=== PATIENT | male | born 1950 | race Caucasian/White ===

== ENCOUNTER → 2024-07-02 | Outpatient (CLI) | payer MEDICARE ==
--- NOTE | 2024-07-03 16:55 | XR ---
EXAMINATION TYPE: XR ribs LT w pa chest xray DATE OF EXAM: 07/02/2024 4:26 PM COMPARISON: None. CLINICAL INDICATION: Male, 74 years old with history of W19.XXXA,S22.32XB LEFT RIB PAIN, TECHNIQUE: 2 views view(s) obtained. Frontal chest is obtained FINDINGS: Heart size is somewhat prominent. Pulmonary vasculature is normal. Lungs are clear. No pneumothorax e vident. Left ribs appear intact. No displaced fractures identified IMPRESSION: 1. No acute left rib fractures. [facility], , 07/03/2024 4:53 PM
== END | disposition home or self-care (01) ==
LOC: RADXRMAIN 16:05
DX: S22.32XB Fracture of one rib, left side, initial encounter for open fracture (principal); W19.XXXA Unspecified fall, initial encounter